=== PATIENT | female | born 1970 | race Caucasian/White ===

== ENCOUNTER 2017-12-21 16:19 | Emergency (ER) | END 2017-12-21 20:10 | disposition home or self-care (01) ==

== ENCOUNTER 2018-04-20 02:04 | Emergency (ER) | END 2018-04-20 04:12 | disposition home or self-care (01) ==

== ENCOUNTER 2018-05-13 04:03 | Emergency (ER) | END 2018-05-13 07:55 | disposition home or self-care (01) ==